=== PATIENT | female | born 1990 | race Caucasian/White ===

== ENCOUNTER 2019-02-02 10:24 | Emergency (ER) | payer OTHER ==
[2019-02-02] MEDS ORDERED: NS 500 ML IV ONE (10:42)
[2019-02-02] MEDS ORDERED: ONDANSETRON 4 MG/2 ML VIAL IVP ONE (10:42)
[2019-02-02] MEDS ORDERED: FAMOTIDINE 20 MG in NS 100 ML IV ONE (10:42)
--- NOTE | 2019-02-02 10:57 | EDPHY ---
H & P Time Seen by Provider: 02/02/19 10:30 HPI/ROS: HPI Upper abdominal pain. 28-year-old female by private vehicle. This patient reports that since yesterday she has had a sensation of epigastric discomfort described as a burning and cramping sensation which is exacerbated by movement and walking. She reports that it is present at a low level but she has a sharper more stabbing pain when she is ambulating or moving. She has had some mild associated nausea but no vomiting. No diarrhea. Last bowel movement was this morning. This was described as normal. No bloody or melenic stool. Last menstrual period finished a day or 2 ago. She has no prior abdominal surgical history. ROS: Constitutional: No fever, no chills. No weakness. Eyes: No discharge. No changes in vision. ENT: No sore throat. No nasal congestion or rhinorrhea. Respiratory: No cough. No shortness of breath. Cardiac: No chest pain, no palpitations. Gastrointestinal: As above. Genitourinary: No hematuria. No dysuria or increased frequency with urination. Musculoskeletal: No back pain. No neck pain. No myalgias or arthralgias. Skin: No rashes. Neurological: No headache. No focal weakness or altered sensation. Past medical history: No significant past medical history. Social history: She is here by herself. No alcohol. She is a working professional. Physical Exam: General Appearance: Alert, she appears comfortable. She is not in any distress. This patient is responding to questions appropriately and in full sentences. This patient appears well-hydrated and well-nourished. Eyes: Pupils equal and round no pallor or injection. No lid edema, erythema or injection. Respiratory: There are no retractions, lungs are clear to auscultation with good air movement bilaterally. Cardiovascular: Regular rate and rhythm. No murmur. Gastrointestinal: Abdomen is soft with vague and mild epigastric and mid upper abdominal tenderness on palpation, no masses, bowel sounds normal. No focal tenderness at McBurney's point. No De La Cruz sign. Neurological: Motor sensory function is grossly intact. Cranial nerves are normal. Gait is normal. Skin: Warm and dry, no rashes. Musculoskeletal: Neck is supple and nontender. Extremities are symmetrical. All joints range without pain or impingement. Psychiatric: No agitation. No depression. Database: EKG: Imaging: Right upper quadrant ultrasound: Negative study. Results were discussed with staff radiologist Dr. Ramírez Witt. Procedures: Emergency department course: Triage vital signs reviewed and are normal. IV was placed. She was started on IV normal saline with 500 cc to be given over the next hour. She will be given 20 mg of IV Pepcid and 4 mg of IV Zofran initially. She currently declines pain medication. She will be sent for ultrasound of the right upper quadrant shortly. 11:30 a.m., the patient was re-evaluated, she is resting comfortably at this time. Her vital signs have remained normal. Repeat abdominal exam she is soft , nontender nondistended. She states that she is feeling better. Results of her ultrasound and blood work and urinalysis discussed with her. These have all been reassuring. Her presentation is consistent with a gastritis, possibly peptic ulcer disease. She will be placed on a proton pump inhibitor. She will be given 40 mg of oral Protonix in the emergency department now. I will discharge her with a prescription for this medication. She feels comfortable going home. I will have her follow up with [facility] in 2-3 days for re-evaluation. She is in agreement with this plan. Return to emergency department precautions of thoroughly been reviewed with her. All of her questions were answered. She was discharged from the emergency department in good condition. Differential Diagnosis: The differential diagnosis on this patient includes but is not limited to gastritis, biliary colic, pancreatitis. Perforated peptic ulcer, volvulus, aortic dissection unlikely. This represents a partial list of diagnoses considered. These considerations are based on history, physical exam, past history, reassessment and diagnostic testing. Smoking Status: Never smoked Constitutional: Initial Vital Signs Temperature (C) 36.6 C 02/02/19 10:35 Heart Rate 78 02/02/19 10:35 Respiratory Rate 20 02/02/19 10:35 Blood Pressure 130/90 H 02/02/19 10:35 O2 Sat (%) 98 02/02/19 10:35 O2 Delivery Mode Room Air Allergies/Adverse Reactions: No Known Allergies Allergy (Unverified 02/02/19 10:38) Home Medications: Medication Instructions Recorded Pantoprazole Sodium [Protonix] 40 mg PO DAILY #14 tab 02/02/19 Medical Decision Making - Diagnostics Imaging Results: Imaging Impressions Abdomen Ultrasound 02/02/19 10:43 Impression: Normal study. Findings were discussed with Claribel Tirado MD at 11:15, on 02/02/2019. - Data Points Laboratory Results: 02/02/19 10:51 POC Sodium 139 mEq/L mEq/L (135-145) POC Potassium 4.0 mEq/L mEq/L (3.3-5.0) POC Chloride 102.0 mEq/L mEq/L (97-110) POC Total CO2 27 mEq/L mEq/L (22-31) POC BUN 7 mg/dL mg/dL (7-23) POC Creatinine 0.9 mg/dL mg/dL (0.6-1.0) POC Glucose 87 mg/dL mg/dL (70-100) POC Calcium 9.6 mg/dL mg/dL (8.5-10.4) POC Total Bilirubin 0.9 mg/dL mg/dL (0.1-1.4) POC AST 24 IU/L IU/L (14-46) POC ALT 16 IU/L IU/L (9-52) POC Alk Phosphatase 39 IU/L IU/L (38-126) POC Total Protein 8.1 g/dL g/dL (6.3-8.2) POC Albumin 4.8 g/dL g/dL (3.5-5.0) Medications Given: Discontinued Medications Sodium Chloride (Ns) 500 mls @ 0 mls/hr IV EDNOW ONE; Wide Open PRN Reason: Protocol Stop: 02/02/19 10:43 Last Admin: 02/02/19 11:09 Dose: 500 mls Famotidine 20 mg/ Sodium (Chloride) 102 mls @ 408 mls/hr IV EDNOW ONE Stop: 02/02/19 10:56 Last Admin: 02/02/19 11:09 Dose: 102 mls Ondansetron HCl (Zofran) 4 mg IVP EDNOW ONE Stop: 02/02/19 10:43 Last Admin: 02/02/19 11:08 Dose: 4 mg Point of Care Test Results: CBC CBC Collection Date 02/02/19 CBC Collection Time 10:45 WBC 10.02 RBC 4.98 HGB 15.0 HCT 45.0 PLT 291 Neut # 7.66 Neut 76.4 LYMPH # 1.41 LYMPH 14.1 MCV 90.4 Chemistry 02/02/19 10:51 POC Sodium 139 mEq/L mEq/L (135-145) POC Potassium 4.0 mEq/L mEq/L (3.3-5.0) POC Chloride 102.0 mEq/L mEq/L (97-110) POC Total CO2 27 mEq/L mEq/L (22-31) POC BUN 7 mg/dL mg/dL (7-23) POC Creatinine 0.9 mg/dL mg/dL (0.6-1.0) POC Glucose 87 mg/dL mg/dL (70-100) POC Calcium 9.6 mg/dL mg/dL (8.5-10.4) POC Total Bilirubin 0.9 mg/dL mg/dL (0.1-1.4) POC AST 24 IU/L IU/L (14-46) POC ALT 16 IU/L IU/L (9-52) POC Alk Phosphatase 39 IU/L IU/L (38-126) POC Total Protein 8.1 g/dL g/dL (6.3-8.2) POC Albumin 4.8 g/dL g/dL (3.5-5.0) Urine Collection Date 02/02/19 Collection Time 11:00 HCG Results Negative Urine Dip Collection Date 02/02/19 Collection Time 11:00 Specific [place] (1.002-1.030) 1.005 PH (5.0-7.5) 6.0 Leukocytes (Negative) Trace Nitrites (Negative) Negative Protein (Negative) Negative Glucose (Negative) Negative Ketones (Negative) Negative Urobilnogen (0.2-1.0 EU) 0.2 Bilirubin (Negative) Negative Blood (Negative) Negative Departure - Departure Disposition: Home, Routine, Self-Care Clinical Impression: Upper abdominal pain Condition: Good Instructions: Acute Abdominal Pain (ED) Additional Instructions: Read and follow provided instructions. I have provided you with the contact information for [facility]. Call this afternoon for a follow-up appointment time and to establish a primary care physician relationship. You should be seen on follow-up as needed within the next 2-3 days. Take medication as prescribed. Return to the emergency department for worsening abdominal pain, vomiting, bloody or black stool or other serious concerns. Referrals: [facility] [Outside] - As per Instructions Prescriptions: Pantoprazole Sodium [Protonix] 40 mg PO DAILY #14 tab
[2019-02-02] MEDS ORDERED: PANTOPRAZOLE SODIUM 40 MG TAB PO ONE (11:37)
[2019-02-02 11:53] VITALS: BP 111/72
== END 2019-02-02 11:53 | disposition home or self-care (01) ==
LOC: CED 10:24
DX: R10.9 Unspecified abdominal pain (principal); E86.9 Volume depletion, unspecified
CPT/HCPCS: 76705-PO; 80053-ER; 81025-ER; 85025-QW-ER; 96365-ER; 96375-ER; 99285-ER; J2405